=== PATIENT | male | born 1945 | race Caucasian/White ===

== ENCOUNTER 2016-09-14 09:48 | Outpatient (CLI) | payer MEDICARE, OTHER ==
[2016-09-14] MEDS ORDERED: IOPAMIDOL-300 100 ML VIAL IVP ONE (13:27)
[2016-09-14] MEDS ORDERED: IOPAMIDOL-300 50 ML VIAL PO ONE (13:27)
== END 2016-09-14 09:49 | disposition home or self-care (01) ==
DX: K57.30 Diverticulosis of large intestine without perforation or abscess without bleeding (principal); R73.09 Other abnormal glucose; E78.2 Mixed hyperlipidemia; R97.20 Elevated prostate specific antigen [PSA]
CPT/HCPCS: 74177; 80053; 80061; 83036; 83690; 84154; 85025; Q9967

== ENCOUNTER 2017-03-26 09:11 | Outpatient (CLI) | payer MEDICARE, OTHER ==
[2017-03-26 18:15] LABS: PSA FREE 1.219 ng/mL (0.16-2.81)
[2017-03-26 18:16] LABS: PSA TOTAL 6.474 ng/mL (0.000-2.000)
== END 2017-03-26 09:12 | disposition home or self-care (01) ==
LOC: LAB.F 09:11
PROVIDERS: ATTEND Internal Medicine
DX: R97.20 Elevated prostate specific antigen [PSA] (principal); E78.2 Mixed hyperlipidemia
CPT/HCPCS: 36415; 84154

== ENCOUNTER 2017-07-11 09:15 | Outpatient (CLI) | payer MEDICARE, OTHER ==
--- NOTE | 2017-07-11 19:11 | XRAY Report ---
DATE OF SERVICE: 07/11/2017 LEFT HIP AND PELVIS: 07/11/2017 CLINICAL INDICATION: Left hip pain. Frontal view of the hips and pelvis and frogleg lateral view of the left hip demonstrate mild osteoarthritis. There is no evidence of fracture or dislocation. No radiopaque foreign body is seen in the soft tissues. IMPRESSION: Mild osteoarthritis. TD: 07/11/2017 20:10
== END 2017-07-11 09:16 | disposition home or self-care (01) ==
LOC: DI 09:15
PROVIDERS: ATTEND Internal Medicine
DX: M16.12 Unilateral primary osteoarthritis, left hip (principal)

== ENCOUNTER 2017-09-12 10:50 | Outpatient (CLI) | payer MEDICARE, OTHER ==
--- NOTE | 2017-09-12 11:24 | XRAY Report ---
TWO VIEW CHEST: 09/12/2017 CLINICAL INDICATION: Bronchitis. FINDINGS: Frontal and lateral views of the chest demonstrate a normal cardiac silhouette. The lungs are clear. No effusion or pneumothorax is seen. IMPRESSION: NORMAL CHEST. TD: 09/12/2017 11:23
== END 2017-09-12 10:51 | disposition home or self-care (01) ==
LOC: DI.S 10:50
PROVIDERS: ATTEND Physician Assistant Medical
DX: J20.9 Acute bronchitis, unspecified (principal)
CPT/HCPCS: 71046

== ENCOUNTER 2018-04-23 07:29 | Outpatient (CLI) | payer MEDICARE, OTHER ==
[2018-04-23 12:09] LABS: BASOPHILS % (AUTO) 0.8 %; EOSINOPHILS # (AUTO) 0.3 10^3/uL (0.0-0.7); EOSINOPHILS % (AUTO) 5.3 %; HGB - HEMOGLOBIN 14.5 g/dL (14.0-18.0); LYMPHOCYTES # (AUTO) 1.5 10^3/uL (1.5-3.5); LYMPHOCYTES % (AUTO) 28.2 %; MEAN CORPUSCULAR HEMOGLOBIN 31.1 pg (27.0-31.0); MEAN CORPUSCULAR HGB CONC 33.9 g/dL (32.0-36.0); MEAN CORPUSCULAR VOLUME 91.7 fL (80.0-94.0); MONOCYTES # (AUTO) 0.5 10^3/uL (0.0-1.0); MONOCYTES % (AUTO) 9.9 %; NEUTROPHILS % (AUTO) 55.8 %; PLT - PLATELET COUNT 271 10^3/uL (130-450); RED BLOOD COUNT 4.65 10^6/uL (4.70-6.10); RED CELL DISTRIBUTION WIDTH 13.1 % (12.0-15.0); WHITE BLOOD COUNT 5.4 x10^3/uL (4.8-10.8)
[2018-04-23 12:24] LABS: ALBUMIN/GLOBULIN RATIO 1.5 (1.0-2.2); ALKALINE PHOSPHATASE 48 IU/L (42-121); ALT ALANINE AMINOTRANSFERASE 23 IU/L (10-60); AST ASPARTATE AMINOTRANSFERASE 24 IU/L (10-42); BILIRUBIN,TOTAL 0.9 mg/dL (0.2-1.0); BUN - BLOOD UREA NITROGEN 16 mg/dL (6-20); CARBON DIOXIDE - CO2 28 mmol/L (21-32); CHLORIDE 101 mmol/L (101-111); CHOL/HDL RATIO 2.8 (<5.0); CHOLESTEROL 195 mg/dL; CREATININE 0.9 mg/dL (0.6-1.2); GFR - MDRD 83 (>89); GLUCOSE 119 mg/dL (70-100); HDL CHOLESTEROL 70 mg/dL; SODIUM 137 mmol/L (135-145); TOTAL PROTEIN 6.7 g/dL (6.7-8.2)
[2018-04-23 12:48] LABS: LDL CHOLESTEROL,DIRECT 121 mg/dL; LDLD/HDL RATIO 1.7 (<3.6)
== END 2018-04-23 07:30 | disposition home or self-care (01) ==
LOC: LAB.F 07:29
PROVIDERS: ATTEND Internal Medicine
DX: M19.90 Unspecified osteoarthritis, unspecified site (principal); I10 Essential (primary) hypertension; Z12.5 Encounter for screening for malignant neoplasm of prostate; E66.9 Obesity, unspecified; Z87.898 Personal history of other specified conditions; E78.5 Hyperlipidemia, unspecified; Z79.899 Other long term (current) drug therapy
CPT/HCPCS: 36415; 80053; 80061; 83721; 84443; 85025; G0103; 84153

== ENCOUNTER 2018-05-01 09:16 | Outpatient (CLI) | payer MEDICARE, OTHER ==
[2018-05-01 16:13] LABS: HB2 TOTAL 15.4 g/dL; HEMOGLOBIN A1C 0.59 g/dL; HEMOGLOBIN A1C % 5.7 % (4.6-6.2)
== END 2018-05-01 09:17 ==
LOC: LAB.R 09:16
PROVIDERS: ATTEND Internal Medicine
DX: R73.9 Hyperglycemia, unspecified (principal)
CPT/HCPCS: 83036

== ENCOUNTER 2018-10-12 09:40 | Emergency (ER) | payer MEDICARE, OTHER ==
--- NOTE | 2018-10-12 11:18 | XRAY Report ---
Reason: cough soa Procedure Date: 10/12/2018 Accession Number: [id number] / [id number] Procedure: XR - Chest 2 View X-Ray CPT Code: 63804 FULL RESULT: EXAM: CHEST RADIOGRAPHY EXAM DATE: 10/12/2018 11:01 AM. CLINICAL HISTORY: Cough with shortness of breath. COMPARISON: CHEST 2 VIEW 09/12/2017 11:07 AM. TECHNIQUE: 2 views. FINDINGS: Lungs/Pleura: Mild atelectatic changes seen at the left base. Remaining lung castillo are clear. Mediastinum: Heart and mediastinal contours are unremarkable. Other: None. IMPRESSION: Mild atelectatic changes at the left base, otherwise unremarkable exam. RADIA
--- NOTE | 2018-10-12 11:31 | ED Physician Documentation ---
PD HPI DYSPNEA - Stated complaint Stated Complaint: SOA - Chief complaint Chief Complaint: Resp - History obtained from History obtained from: Patient, Family - History of Present Illness Timing - onset: How many weeks ago (1+) Timing - onset during: Rest Timing - duration: Weeks (1+) Timing - details: Gradual onset, Still present Inciting event(s): URI Improved by: Rest Worsened by: Coughing Associated symptoms: Cough. No: Fever, Chest pain / discomfort Similar symptoms before: Has not had sx before Recently seen: Not recently seen - Additional information Additional information: Previously well 73-year-old male has developed a sensation of some difficulty getting a full deep breath and a feeling that he needs to take a deep breath periodically. He has had a slight cough. He has been to [place] on a plane and returned about 1 week ago. He denies any sudden onset of chest pain associated with this he denies any rapid heart rate.He does use CPAP at night and he did use this during his trip. Patient has been into see his doctor and the doctor is recommended a number of tests to include a CBC metabolic panel BNP troponin and d-dimer as well as a chest x-ray. Review of Systems Constitutional: reports: Fatigue. denies: Fever, Chills Eyes: denies: Decreased vision Ears: denies: Ear pain Nose: reports: Rhinorrhea / runny nose, Congestion Throat: denies: Sore throat Cardiac: denies: Chest pain / pressure, Palpitations Respiratory: reports: Dyspnea, Cough GI: denies: Abdominal Pain, Nausea, Vomiting : denies: Dysuria, Frequency PD PAST MEDICAL HISTORY - Present Medications Home Medications: Ambulatory Orders Medication Instructions Recorded Confirmed Amox/Clav 875/125 [Augmentin] 1 each PO Q12H #20 tablet 10/12/18 - Allergies Allergies/Adverse Reactions: Allergies Allergy/AdvReac Type Severity Reaction Status Date / Time azithromycin Allergy Hives Verified 10/12/18 09:45 PD ED PE NORMAL - Vitals Vital signs reviewed: Yes (hypertensive mild ) - General General: Alert and oriented X 3, No acute distress, Well developed/nourished - HEENT HEENT: Atraumatic, PERRL, EOMI, Other (broad erythema across the umbo on the right only ) - Neck Neck: Supple, no meningeal sign, No bony TTP - Cardiac Cardiac: RRR, No murmur - Respiratory Respiratory: No respiratory distress, Clear bilaterally - Abdomen Abdomen: Soft, Non tender - Back Back: No CVA TTP, No spinal TTP - Derm Derm: Normal color, Warm and dry, No rash - Extremities Extremities: No deformity, No edema - Neuro Neuro: Alert and oriented 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, 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, No motor deficit, No sensory deficit, Normal speech Eye Opening: Spontaneous Motor: Obeys Commands Verbal: Oriented GCS Score: 15 - Psych Psych: Normal mood, Normal affect Results - Vitals Vitals: Vital Signs - 24 hr 10/12/18 09:43 Temperature 36.5 C Heart Rate 62 Respiratory 18 Rate Blood Pressure 145/76 H O2 Saturation 100 Oxygen O2 Source Room air - Labs Labs: Laboratory Tests 10/12/18 10/12/18 10/12/18 11:06 11:06 11:06 WBC 6.9 RBC 4.57 L Hgb 13.1 L Hct 40.1 L MCV 87.6 MCH 28.7 MCHC 32.8 RDW 15.2 H Plt Count 274 MPV 8.1 Neut # (Auto) 4.4 Lymph # (Auto) 1.5 [place] # (Auto) 0.7 Eos # (Auto) 0.2 Baso # (Auto) 0.0 Absolute Nucleated RBC 0.00 Nucleated RBC % 0.0 D-Dimer Sodium 136 Potassium 4.2 Chloride 102 Carbon Dioxide 26 Anion Gap 8.0 BUN 19 Creatinine 1.1 Estimated GFR (MDRD) 66 L Glucose 102 H Calcium 8.8 Total Bilirubin 0.6 AST 21 ALT 22 Alkaline Phosphatase 46 Troponin I < 0.04 B-Natriuretic Peptide Total Protein 6.6 L Albumin 3.7 Globulin 2.9 Albumin/Globulin Ratio 1.3 Lipase 43 10/12/18 10/12/18 11:06 11:06 WBC RBC Hgb Hct MCV MCH MCHC RDW Plt Count MPV Neut # (Auto) Lymph # (Auto) [place] # (Auto) Eos # (Auto) Baso # (Auto) Absolute Nucleated RBC Nucleated RBC % D-Dimer 208.1 Sodium Potassium Chloride Carbon Dioxide Anion Gap BUN Creatinine Estimated GFR (MDRD) Glucose Calcium Total Bilirubin AST ALT Alkaline Phosphatase Troponin I B-Natriuretic Peptide 30 Total Protein Albumin Globulin Albumin/Globulin Ratio Lipase - Rads (name of study) chest Radiology: Prelim report reviewed (Impression: Mild atelectatic changes at the left base, otherwise unremarkable exam.), EMP read indepedently, See rad report PD MEDICAL DECISION MAKING - ED course Complexity details: reviewed results, re-evaluated patient, considered differential, d/w patient, d/w family ED course: 73-year-old male with a chief complaint of shortness of breath after a recent plane trip has otitis on exam and he does not appear to have any significant reactive airway disease. He has some atelectasis in the left base on his chest x-ray. His physician sent him to the emergency department to get a series of test all of which appear appropriate for work-up of this patient's shortness of breath. The patient's work-up is reassuring and that his d-dimer was negative his BNP and troponin negative as well white blood cell count was normal chest x-ray showed the atelectasis and I suspect this patient's symptoms all revolve from this right otitis that we will treat. He is administered dexamethasone here in the emergency department he is allergic to a azithromycin we will place him on some Augmentin. Departure - Departure Disposition: Home, Self Care Clinical Impression: Otitis media Qualifiers: Otitis media type: suppurative Chronicity: acute Laterality: right Recurrence: non-recurrent Spontaneous tympanic membrane rupture: without spontaneous rupture Qualified Code(s): H66.001 - Acute suppurative otitis media without spontaneous rupture of ear drum, right ear Condition: Stable Instructions: ED Otitis Media Acute Adult Follow-Up: César Mcclendon MD [Primary Care Provider] - Prescriptions: Amox/Clav 875/125 [Augmentin] 1 each PO Q12H #20 tablet
[2018-10-12 11:36] LABS: BASOPHILS % (AUTO) 0.6 %; EOSINOPHILS # (AUTO) 0.2 10^3/uL (0.0-0.7); EOSINOPHILS % (AUTO) 2.4 %; HGB - HEMOGLOBIN 13.1 g/dL (14.0-18.0); LYMPHOCYTES # (AUTO) 1.5 10^3/uL (1.5-3.5); LYMPHOCYTES % (AUTO) 21.6 %; MEAN CORPUSCULAR HEMOGLOBIN 28.7 pg (27.0-31.0); MEAN CORPUSCULAR HGB CONC 32.8 g/dL (32.0-36.0); MEAN CORPUSCULAR VOLUME 87.6 fL (80.0-94.0); MEAN PLATELET VOLUME 8.1 fL (7.4-11.4); MONOCYTES # (AUTO) 0.7 10^3/uL (0.0-1.0); MONOCYTES % (AUTO) 10.5 %; NEUTROPHILS # (AUTO) 4.4 10^3/uL (1.5-6.6); NEUTROPHILS % (AUTO) 64.9 %; PLT - PLATELET COUNT 274 10^3/uL (130-450); RED BLOOD COUNT 4.57 10^6/uL (4.70-6.10); RED CELL DISTRIBUTION WIDTH 15.2 % (12.0-15.0); WHITE BLOOD COUNT 6.9 x10^3/uL (4.8-10.8)
[2018-10-12 11:50] LABS: ALBUMIN 3.7 g/dL (3.2-5.5); ALBUMIN/GLOBULIN RATIO 1.3 (1.0-2.2); BILIRUBIN,TOTAL 0.6 mg/dL (0.2-1.0); CALCIUM 8.8 mg/dL (8.5-10.3); CREATININE 1.1 mg/dL (0.6-1.2); TOTAL PROTEIN 6.6 g/dL (6.7-8.2)
[2018-10-12] MEDS ORDERED: DEXAMETHASONE 10 MG/ML VIAL PO STA (12:09)
[2018-10-12] MEDS ORDERED: CHERRY SYRUP 10 ML UDC PO ONE (12:09)
[2018-10-12 12:21] VITALS: BP 131/81
== END 2018-10-12 13:01 | disposition home or self-care (01) ==
LOC: ED 09:40
DX: H66.001 Acute suppurative otitis media without spontaneous rupture of ear drum, right ear (principal); J98.11 Atelectasis
CPT/HCPCS: 36415; 71046; 80053; 83690; 83880; 84484; 85025; 85379; 99283; A9270

== ENCOUNTER 2018-10-21 11:05 | Outpatient (CLI) | payer MEDICARE, OTHER ==
[2018-10-21 18:30] LABS: RHEUMATOID FACTOR NEGATIVE (Negative)
[2018-10-23 18:31] LABS: ANA SCREEN POSITIVE (NEGATIVE)
== END 2018-10-21 11:06 | disposition home or self-care (01) ==
LOC: LAB.F 11:05
PROVIDERS: ATTEND Family Medicine
DX: R06.09 Other forms of dyspnea (principal)
CPT/HCPCS: 36415; 85651; 86038; 86140; 86200; 86430

== ENCOUNTER 2018-12-19 10:00 | Outpatient (CLI) | payer MEDICARE, OTHER ==
[2018-12-19 18:02] LABS: PSA FREE 0.797 ng/mL (0.16-2.81)
[2018-12-19 18:03] LABS: PSA TOTAL 3.221 ng/mL (0.000-2.000)
== END 2018-12-19 10:01 | disposition home or self-care (01) ==
LOC: LAB.S 10:00
PROVIDERS: ATTEND Urology
DX: R97.20 Elevated prostate specific antigen [PSA] (principal)
CPT/HCPCS: 36415; 84153; 84154

== ENCOUNTER 2019-07-22 15:43 | Outpatient (CLI) | payer MEDICARE, OTHER ==
[2019-07-22 18:41] LABS: PSA FREE 0.68 ng/mL (0.16-2.81)
[2019-07-22 18:42] LABS: PSA TOTAL 2.63 ng/mL (0.000-2.000)
== END 2019-07-22 23:59 | disposition home or self-care (01) ==
LOC: LAB.S 15:43
PROVIDERS: ATTEND Urology
DX: R97.20 Elevated prostate specific antigen [PSA] (principal)
CPT/HCPCS: 36415; 84153; 84154

== ENCOUNTER 2019-11-10 11:50 | Outpatient (CLI) | payer MEDICARE, OTHER | END 2019-11-10 23:59 | disposition home or self-care (01) | LOC: COV 11:50 | PROVIDERS: ATTEND Family Medicine | DX: R06.02 Shortness of breath (principal); J02.9 Acute pharyngitis, unspecified; Z20.828 Contact with and (suspected) exposure to other viral communicable diseases | CPT/HCPCS: 81599 ==

== ENCOUNTER 2020-03-25 08:00 | Outpatient (CLI) | payer MEDICARE, OTHER ==
[2020-03-25 15:30] LABS: BASOPHILS # (AUTO) 0.1 10^3/uL (0.0-0.1); BASOPHILS % (AUTO) 1.1 %; EOSINOPHILS # (AUTO) 1.4 10^3/uL (0.0-0.7); EOSINOPHILS % (AUTO) 17.4 %; HGB - HEMOGLOBIN 13.1 g/dL (14.0-18.0); LYMPHOCYTES # (AUTO) 1.1 10^3/uL (1.5-3.5); LYMPHOCYTES % (AUTO) 14.1 %; MEAN CORPUSCULAR HEMOGLOBIN 28.9 pg (27.0-31.0); MEAN CORPUSCULAR HGB CONC 31.3 g/dL (32.0-36.0); MEAN CORPUSCULAR VOLUME 92.3 fL (80.0-94.0); MEAN PLATELET VOLUME 9.7 fL (7.4-11.4); MONOCYTES # (AUTO) 0.8 10^3/uL (0.0-1.0); MONOCYTES % (AUTO) 9.9 %; NEUTROPHILS # (AUTO) 4.6 10^3/uL (1.5-6.6); NEUTROPHILS % (AUTO) 57.1 %; PLT - PLATELET COUNT 321 10^3/uL (130-450); RED BLOOD COUNT 4.53 10^6/uL (4.70-6.10); RED CELL DISTRIBUTION WIDTH 13.6 % (12.0-15.0)
== END 2020-03-25 23:59 | disposition home or self-care (01) ==
LOC: LAB.S 08:00
PROVIDERS: ATTEND Physician Assistant Medical
DX: R07.0 Pain in throat (principal); R05 Cough
CPT/HCPCS: 36415; 85025

== ENCOUNTER 2020-03-25 08:00 | Outpatient (CLI) | payer MEDICARE, OTHER ==
--- NOTE | 2020-03-25 14:29 | XRAY Report ---
PROCEDURE: Chest 2 View X-Ray INDICATIONS: COUGH TECHNIQUE: 2 view(s) of the chest. COMPARISON: None. FINDINGS: Surgical changes and devices: None. Lungs and pleura: No pleural effusions or pneumothorax. Lungs are clear. Mediastinum: Mediastinal contours are normal. Heart size is normal. Bones and chest wall: No suspicious bony abnormalities. Soft tissues appear unremarkable. 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 No underlying mass is found. Source of cough is not seen. Reviewed by: Jimmie Reynoso MD on 03/25/2020 2:27 PM PDT Approved by: Jimmie Reynoso MD on 03/25/2020 2:27 PM PDT Station ID: [id number]
== END 2020-03-25 23:59 | disposition home or self-care (01) ==
LOC: DI.S 08:00
PROVIDERS: ATTEND Physician Assistant Medical
DX: R05 Cough (principal); R07.0 Pain in throat
CPT/HCPCS: 36415; 71046; 85025

== ENCOUNTER 2020-03-25 11:10 | Outpatient (CLI) | payer MEDICARE, OTHER | END 2020-03-25 23:59 | disposition home or self-care (01) | LOC: LAB.R 11:10 | PROVIDERS: ATTEND Physician Assistant Medical | DX: R07.0 Pain in throat (principal); R05 Cough; Z20.828 Contact with and (suspected) exposure to other viral communicable diseases ==

== ENCOUNTER 2020-06-27 10:22 | Outpatient (CLI) | payer MEDICARE, OTHER ==
[2020-06-27 15:56] LABS: BASOPHILS % (AUTO) 0.5 %; EOSINOPHILS # (AUTO) 0.2 10^3/uL (0.0-0.7); HGB - HEMOGLOBIN 12.8 g/dL (14.0-18.0); LYMPHOCYTES # (AUTO) 1.6 10^3/uL (1.5-3.5); MEAN CORPUSCULAR HEMOGLOBIN 27.2 pg (27.0-31.0); MEAN CORPUSCULAR HGB CONC 29.9 g/dL (32.0-36.0); MEAN CORPUSCULAR VOLUME 91.1 fL (80.0-94.0); MEAN PLATELET VOLUME 10.4 fL (7.4-11.4); MONOCYTES # (AUTO) 0.6 10^3/uL (0.0-1.0); MONOCYTES % (AUTO) 10.2 %; NEUTROPHILS # (AUTO) 3.4 10^3/uL (1.5-6.6); PLT - PLATELET COUNT 303 10^3/uL (130-450); RED CELL DISTRIBUTION WIDTH 14.9 % (12.0-15.0); WHITE BLOOD COUNT 5.8 x10^3/uL (4.8-10.8)
[2020-06-27 16:27] LABS: ALBUMIN/GLOBULIN RATIO 1.6 (1.0-2.2); BILIRUBIN,TOTAL 0.8 mg/dL (0.2-1.0); TOTAL PROTEIN 6.5 g/dL (6.7-8.2)
== END 2020-06-27 10:23 | disposition home or self-care (01) ==
LOC: LAB.S 10:22
PROVIDERS: ATTEND Internal Medicine
DX: Z00.00 Encounter for general adult medical examination without abnormal findings (principal); Z12.5 Encounter for screening for malignant neoplasm of prostate; R76.0 Raised antibody titer
CPT/HCPCS: 36415; 80053; 85025; 86038; 86225; G0103; 84153

== ENCOUNTER 2020-11-01 09:05 | Outpatient (CLI) | payer MEDICARE, OTHER ==
[2020-11-01 15:36] LABS: PSA FREE 1.132 ng/mL (0.16-2.81)
[2020-11-01 15:37] LABS: PSA TOTAL 9.53 ng/mL (0.000-2.000)
== END 2020-11-01 09:06 | disposition home or self-care (01) ==
LOC: LAB.S 09:05
PROVIDERS: ATTEND Urology
DX: R97.20 Elevated prostate specific antigen [PSA] (principal)
CPT/HCPCS: 36415; 84153; 84154

== ENCOUNTER 2020-11-22 07:00 | Outpatient (CLI) | payer MEDICARE, OTHER ==
[2020-11-22 15:57] LABS: FECAL OCCULT BLOOD (FIT) NEGATIVE (NEGATIVE)
== END 2020-11-22 23:59 | disposition home or self-care (01) ==
LOC: LAB.R 07:00
PROVIDERS: ATTEND Internal Medicine
DX: Z12.11 Encounter for screening for malignant neoplasm of colon (principal)
CPT/HCPCS: 82274

== ENCOUNTER 2020-11-23 07:14 | Outpatient (CLI) | payer MEDICARE, OTHER ==
[2020-11-23 15:45] LABS: BASOPHILS # (AUTO) 0.1 10^3/uL (0.0-0.1); EOSINOPHILS # (AUTO) 0.2 10^3/uL (0.0-0.7); EOSINOPHILS % (AUTO) 3.8 %; HCT - HEMATOCRIT 39.3 % (42.0-52.0); HGB - HEMOGLOBIN 11.8 g/dL (14.0-18.0); LYMPHOCYTES # (AUTO) 1.6 10^3/uL (1.5-3.5); LYMPHOCYTES % (AUTO) 30.5 %; MEAN CORPUSCULAR HEMOGLOBIN 27.6 pg (27.0-31.0); MEAN PLATELET VOLUME 9.6 fL (7.4-11.4); MONOCYTES # (AUTO) 0.6 10^3/uL (0.0-1.0); MONOCYTES % (AUTO) 10.6 %; NEUTROPHILS # (AUTO) 2.8 10^3/uL (1.5-6.6); NEUTROPHILS % (AUTO) 53.1 %; PLT - PLATELET COUNT 326 10^3/uL (130-450); RED BLOOD COUNT 4.27 10^6/uL (4.70-6.10); RED CELL DISTRIBUTION WIDTH 14.4 % (12.0-15.0); WHITE BLOOD COUNT 5.2 x10^3/uL (4.8-10.8)
[2020-11-23 15:48] LABS: ALBUMIN/GLOBULIN RATIO 1.4 (1.0-2.2); BILIRUBIN,TOTAL 0.8 mg/dL (0.2-1.0); CALCIUM 9.3 mg/dL (8.5-10.3); CREATININE 1.1 mg/dL (0.6-1.2); POTASSIUM 4.4 mmol/L (3.5-5.0); TOTAL PROTEIN 6.8 g/dL (6.7-8.2)
[2020-11-23 15:56] LABS: FERRITIN 11.1 ng/mL (23.9-336.2)
== END 2020-11-23 07:15 | disposition home or self-care (01) ==
LOC: LAB.S 07:14
PROVIDERS: ATTEND Internal Medicine
DX: I10 Essential (primary) hypertension (principal); D64.9 Anemia, unspecified
CPT/HCPCS: 36415; 80053; 82607; 82728; 83540; 84466; 85025

== ENCOUNTER 2021-02-03 10:08 | Day surgery (SDC) | payer MEDICARE, OTHER ==
[2021-02-03] MEDS ORDERED: LACTATED RINGERS 1,000 ML IV ONE ×2 (10:12→12:47)
--- NOTE | 2021-02-03 12:12 | HISTORY & PHYSICAL EXAMINATION ---
Chief Complaint - Chief Complaint Chief Complaint: here for colon cancer screening History of Present Illness - History Obtained From Records Reviewed: yes History obtained from: pt Exam Limitations: none - History of Present Illness HPI Comment/Other: Mild anemia and no recent colon cancer screening. No GI symptoms. History - Past Medical History Cardiovascular: reports: Hypertension, Other Respiratory: reports: Shortness of breath GI: reports: GERD : reports: Benign prostate hypertrophy HEENT: reports: None Musculoskeletal: reports: Osteoarthritis MRSA Hx?: No - Past Surgical History General: reports: Appendectomy Ortho: reports: Spine surgery HEENT: reports: Myringotomy (tubes), Tonsil/Adenoidectomy, Other - POLST Patient has POLST: No Meds/Allgy - Home Medications Home Medications: Ambulatory Orders Medication Instructions Recorded Confirmed Losartan Potassium [Cozaar] 50 mg PO DAILY 02/02/21 02/02/21 Omeprazole 20 mg PO DAILY 02/02/21 02/02/21 Tamsulosin [Flomax] 0.4 mg PO DAILY 02/02/21 02/02/21 Zolpidem Tartrate [Ambien] 10 mg PO HS 02/02/21 02/02/21 - Allergies Allergies/Adverse Reactions: Allergies Allergy/AdvReac Type Severity Reaction Status Date / Time azithromycin Allergy Hives Verified 10/12/18 09:45 Review of Systems - Other Findings Other Findings: 10 pt ros as above otherwise unremarkable Exam - Vital Signs Reviewed Vital Signs: Yes Vital Signs: Vital Signs x48h Temp Pulse Resp BP Pulse Ox 02/03/21 10:14 35.8 C L 62 12 163/81 H 99 - Physical Exam General Appearance: positive: No acute distress, Alert Eyes Bilateral: positive: PERRL, EOMI ENT: positive: No signs of dehydration Neck: positive: No JVD Respiratory: positive: No respiratory distress, Breath sounds nml Cardiovascular: positive: Regular rate & rhythm Abdomen: positive: Non-tender, No distention Neurologic/Psychiatric: positive: Oriented x3 Conclusion/Plan - Problem List (1) Colon cancer screening Conclusion/Plan: Plan colonoscopy. Parq held and consent obtained
[2021-02-03] MEDS ORDERED: MIDAZOLAM 2 MG/2 ML VIAL ONE ×2 (12:13→12:19)
[2021-02-03] MEDS ORDERED: fentaNYL 250 MCG/5 ML VIAL ONE (12:13)
[2021-02-03 13:17] VITALS: BP 124/65
== END 2021-02-03 10:09 | disposition home or self-care (01) ==
LOC: SDS 10:08
PROVIDERS: ATTEND Surgery
PROC: 0DBM8ZZ Excision of Descending Colon, Via Natural or Artificial Opening Endoscopic (ICD-10-PCS; principal; 2021-02-03 12:00)
DX: Z12.11 Encounter for screening for malignant neoplasm of colon (principal); D12.4 Benign neoplasm of descending colon; K57.30 Diverticulosis of large intestine without perforation or abscess without bleeding; N40.0 Benign prostatic hyperplasia without lower urinary tract symptoms; D64.9 Anemia, unspecified
CPT/HCPCS: 45380; J3010; J7120

== ENCOUNTER 2021-02-07 10:14 | Outpatient (CLI) | payer MEDICARE, OTHER ==
[2021-02-07 16:12] LABS: PSA FREE 1.7 ng/mL (0.16-2.81)
[2021-02-07 16:13] LABS: PSA TOTAL 5.222 ng/mL (0.000-2.000)
== END 2021-02-07 10:15 | disposition home or self-care (01) ==
LOC: LAB.S 10:14
PROVIDERS: ATTEND Urology
DX: R97.20 Elevated prostate specific antigen [PSA] (principal)
CPT/HCPCS: 36415; 84153; 84154

== ENCOUNTER 2021-05-30 08:59 | Outpatient (CLI) | payer MEDICARE, OTHER ==
[2021-05-30 14:22] LABS: BASOPHILS % (AUTO) 0.8 %; EOSINOPHILS # (AUTO) 0.2 10^3/uL (0.0-0.7); EOSINOPHILS % (AUTO) 3.3 %; HCT - HEMATOCRIT 45.4 % (42.0-52.0); HGB - HEMOGLOBIN 14.9 g/dL (14.0-18.0); LYMPHOCYTES # (AUTO) 1.4 10^3/uL (1.5-3.5); LYMPHOCYTES % (AUTO) 27.7 %; MEAN CORPUSCULAR HEMOGLOBIN 31.8 pg (27.0-31.0); MEAN CORPUSCULAR HGB CONC 32.8 g/dL (32.0-36.0); MEAN CORPUSCULAR VOLUME 96.8 fL (80.0-94.0); MONOCYTES # (AUTO) 0.6 10^3/uL (0.0-1.0); NEUTROPHILS % (AUTO) 56.8 %; PLT - PLATELET COUNT 290 10^3/uL (130-450); RED BLOOD COUNT 4.69 10^6/uL (4.70-6.10); RED CELL DISTRIBUTION WIDTH 13.4 % (12.0-15.0); WHITE BLOOD COUNT 5.2 x10^3/uL (4.8-10.8)
[2021-05-30 14:42] LABS: ALBUMIN 4.2 g/dL (3.2-5.5); ALBUMIN/GLOBULIN RATIO 1.8 (1.0-2.2); ALKALINE PHOSPHATASE 40 IU/L (42-121); ALT ALANINE AMINOTRANSFERASE 28 IU/L (10-60); AST ASPARTATE AMINOTRANSFERASE 25 IU/L (10-42); BILIRUBIN,TOTAL 0.7 mg/dL (0.2-1.0); BUN - BLOOD UREA NITROGEN 20 mg/dL (6-20); CALCIUM 9.8 mg/dL (8.5-10.3); CARBON DIOXIDE - CO2 26 mmol/L (21-32); CHLORIDE 102 mmol/L (101-111); CHOL/HDL RATIO 2.9 (<5.0); CHOLESTEROL 217 mg/dL; GFR - MDRD 73 (>89); GLUCOSE 84 mg/dL (70-100); HDL CHOLESTEROL 76 mg/dL; LDL CHOLESTEROL,CALCULATED 130 mg/dL; LDL/HDL RATIO 1.7 (<3.6); POTASSIUM 4.7 mmol/L (3.5-5.0); SODIUM 138 mmol/L (135-145); TOTAL PROTEIN 6.6 g/dL (6.7-8.2); TRIGLYCERIDES 56 mg/dL; VLDL CHOLESTEROL 11 mg/dL
== END 2021-05-30 09:00 | disposition home or self-care (01) ==
LOC: LAB.S 08:59
PROVIDERS: ATTEND Internal Medicine
DX: I10 Essential (primary) hypertension (principal); E78.5 Hyperlipidemia, unspecified
CPT/HCPCS: 36415; 80053; 80061; 83721; 85025

== ENCOUNTER 2021-08-29 09:10 | Outpatient (CLI) | payer MEDICARE, OTHER ==
[2021-08-29 15:05] LABS: BASOPHILS % (AUTO) 0.4 %; EOSINOPHILS # (AUTO) 0.1 10^3/uL (0.0-0.7); EOSINOPHILS % (AUTO) 1.8 %; HCT - HEMATOCRIT 43.3 % (42.0-52.0); LYMPHOCYTES # (AUTO) 1.5 10^3/uL (1.5-3.5); LYMPHOCYTES % (AUTO) 20.2 %; MEAN CORPUSCULAR HEMOGLOBIN 30.8 pg (27.0-31.0); MEAN CORPUSCULAR HGB CONC 32.3 g/dL (32.0-36.0); MEAN CORPUSCULAR VOLUME 95.2 fL (80.0-94.0); MONOCYTES # (AUTO) 0.8 10^3/uL (0.0-1.0); MONOCYTES % (AUTO) 10.4 %; NEUTROPHILS # (AUTO) 5.1 10^3/uL (1.5-6.6); NEUTROPHILS % (AUTO) 66.9 %; PLT - PLATELET COUNT 293 10^3/uL (130-450); RED BLOOD COUNT 4.55 10^6/uL (4.70-6.10); RED CELL DISTRIBUTION WIDTH 12.2 % (12.0-15.0); WHITE BLOOD COUNT 7.6 x10^3/uL (4.8-10.8)
== END 2021-08-29 09:11 | disposition home or self-care (01) ==
LOC: LAB.S 09:10
PROVIDERS: ATTEND Internal Medicine
DX: D50.9 Iron deficiency anemia, unspecified (principal); R97.20 Elevated prostate specific antigen [PSA]
CPT/HCPCS: 36415; 84153; 85025